=== PATIENT | male | born 1975 | race African-American/Black ===

== ENCOUNTER 2021-08-26 00:08 | Emergency (ER) | payer OTHER ==
[2021-08-26 00:19] VITALS: BP 160/100; PULSE 108; TEMP 98.8; BMI 30.8
== END 2021-08-26 01:07 | disposition home or self-care (01) ==
LOC: FER 00:08
DX: R07.81 Pleurodynia (principal); W22.8XXA Striking against or struck by other objects, initial encounter
CPT/HCPCS: 99283-25